=== PATIENT | female | born 1950 | race Caucasian/White ===

== ENCOUNTER → 2021-01-16 08:34 | Outpatient (CLI) | payer MEDICARE, SELFPAY ==
[2021-01-16 19:20] LABS: Add Manual Diff / Slide Review NO; Basophils Absolute Auto 0 /uL (0-100); Basophils Percent Auto 0.6 % (0-2); Eosinophils Absolute Auto 300 /uL (0-450); Eosinophils Percent Auto 3.3 % (2-4); Hematocrit 44.3 % (36-46); Hemoglobin 14.5 g/dL (12.0-16.0); Lymphocytes Absolute Auto 3000 /uL (1100-4500); Mean Corpuscular HGB Conc 32.8 % (30-36); Mean Corpuscular Hemoglobin 29.5 PG (26-34); Mean Corpuscular Volume 90.1 fL (80-100); Monocytes Absolute Auto 900 /uL (0-900); Monocytes Percent Auto 11.4 % (3-14); Neutrophils Absolute Auto 3900 /uL (1500-7000); Neutrophils Percent Auto 47.7 % (50-75); Platelet Count 292 X10^3/uL (150-400); Red Blood Cell Count 4.92 X10^6/uL (4.0-5.2); Red Cell Distribution Width 13.5 % (11.6-14.8); White Blood Cell Count 8.1 X10^3/uL (4.5-11.0)
[2021-01-16 19:54] LABS: Alanine Aminotransferase 40 IU/L (<35); Albumin 4.8 g/dL (3.5-5.0); Albumin Globulin Ratio 1.5 (1.0-2.8); Alkaline Phosphatase 68 U/L (38-126); Aspartate Aminotransferase 42 IU/L (14-36); BUN Creatinine Ratio 22.5 (6-22); Bilirubin Total 0.7 mg/dL (0.2-1.3); Blood Urea Nitrogen 18 mg/dL (7-17); Calcium 10.2 mg/dL (8.4-10.2); Carbon Dioxide 28 mmol/L (22-32); Chloride 103 mmol/L (98-107); Cholesterol 197 mg/dL (140-199); Estimated Glomerular Filt Rate > 60.0 mL/min (>60); Globulin 3.2 g/dL (1.7-4.1); Glucose 107 mg/dL (80-110); HDL Cholesterol 57 mg/dL (40-60); HEMOLYSIS < 15 (0-50); LDL Cholesterol Calculated 113 mg/dL (<100); Potassium 4.4 mmol/L (3.4-5.1); Sodium 139 mmol/L (137-145); Triglycerides 135 mg/dL (35-150)
[2021-01-16 20:33] LABS: Microalbumin Urine Random < 0.6 mg/dL (0-1.6)
== END ==
PROVIDERS: PCP Physician Assistant; Referring Provider Physician Assistant; Visit Provider Physician Assistant
DX: I10 Essential (primary) hypertension (principal)
CPT/HCPCS: 80053; 80061; 82043; 82570; 85025

== ENCOUNTER → 2021-08-21 13:39 | Outpatient (CLI) | payer MEDICARE, SELFPAY ==
[2021-08-21 18:54] LABS: Hemoglobin A1C% w Est Avg Glu 6.2 % (4.0-6.0)
[2021-08-21 18:58] LABS: Alanine Aminotransferase 29 IU/L (<35); Albumin 4.7 g/dL (3.5-5.0); Albumin Globulin Ratio 1.4 (1.0-2.8); Alkaline Phosphatase 56 U/L (38-126); Aspartate Aminotransferase 33 IU/L (14-36); BUN Creatinine Ratio 22.1 (6-22); Bilirubin Total 0.7 mg/dL (0.2-1.3); Blood Urea Nitrogen 19 mg/dL (7-17); Calcium 10.3 mg/dL (8.4-10.2); Carbon Dioxide 27 mmol/L (22-32); Chloride 106 mmol/L (98-107); Estimated Glomerular Filt Rate > 60.0 mL/min (>60); Globulin 3.4 g/dL (1.7-4.1); Glucose 141 mg/dL (80-110); HEMOLYSIS < 15 (0-50); Potassium 4.3 mmol/L (3.4-5.1); Sodium 140 mmol/L (137-145); Total Protein 8.1 g/dL (6.3-8.2)
== END ==
PROVIDERS: PCP Physician Assistant; Visit Provider Physician Assistant
DX: Z13.1 Encounter for screening for diabetes mellitus (principal); I10 Essential (primary) hypertension; R74.8 Abnormal levels of other serum enzymes; R32 Unspecified urinary incontinence
CPT/HCPCS: 80053; 83036

== ENCOUNTER → 2021-09-10 09:47 | Outpatient (CLI) | payer MEDICARE, SELFPAY | PROVIDERS: PCP Physician Assistant; Visit Provider Family Medicine | DX: R30.0 Dysuria (principal) | CPT/HCPCS: 87077; 87086; 87186 ==

== ENCOUNTER → 2021-10-21 13:24 | Outpatient (CLI) | payer MEDICARE, SELFPAY | PROVIDERS: PCP Physician Assistant; Visit Provider Physician Assistant | DX: R32 Unspecified urinary incontinence (principal) | CPT/HCPCS: 87077; 87086; 87185; 87186 ==

== ENCOUNTER → 2021-11-20 08:04 | Outpatient (CLI) | payer MEDICARE, SELFPAY ==
[2021-11-20 19:57] LABS: Hemoglobin A1C% w Est Avg Glu 6.1 % (4.0-6.0)
[2021-11-20 20:10] LABS: BUN Creatinine Ratio 25.7 (6-22); Blood Urea Nitrogen 19 mg/dL (7-17); Calcium 9.6 mg/dL (8.4-10.2); Carbon Dioxide 25 mmol/L (22-32); Chloride 106 mmol/L (98-107); Estimated Glomerular Filt Rate > 60 mL/min (>60); Glucose 113 mg/dL (80-110); HEMOLYSIS < 15 (0-50); Potassium 4.4 mmol/L (3.4-5.1); Sodium 140 mmol/L (137-145)
== END ==
PROVIDERS: PCP Physician Assistant; Visit Provider Physician Assistant
DX: R73.03 Prediabetes (principal); I10 Essential (primary) hypertension
CPT/HCPCS: 80048; 83036

== ENCOUNTER → 2022-03-21 15:13 | Outpatient (CLI) | payer MEDICARE, SELFPAY | PROVIDERS: PCP Physician Assistant Medical; Visit Provider Physician Assistant Medical | DX: R30.0 Dysuria (principal) | CPT/HCPCS: 87086; 87147 ==

== ENCOUNTER → 2022-04-21 13:04 | Outpatient (CLI) | payer MEDICARE, SELFPAY | PROVIDERS: PCP Family Medicine; Visit Provider Family Medicine | DX: R30.0 Dysuria (principal); N39.0 Urinary tract infection, site not specified | CPT/HCPCS: 87086 ==

== ENCOUNTER → 2022-05-15 08:16 | Outpatient (CLI) | payer MEDICARE, SELFPAY ==
[2022-05-15 20:19] LABS: Hemoglobin A1C% w Est Avg Glu 6.2 % (4.0-6.0)
== END ==
PROVIDERS: PCP Family Medicine; Visit Provider Physician Assistant
DX: R73.03 Prediabetes (principal)
CPT/HCPCS: 83036

== ENCOUNTER → 2022-07-24 09:55 | Outpatient (CLI) | payer MEDICARE, SELFPAY | PROVIDERS: PCP Family Medicine; Visit Provider Physician Assistant Medical | DX: N30.01 Acute cystitis with hematuria (principal) | CPT/HCPCS: 87077; 87086; 87186 ==

== ENCOUNTER → 2022-11-05 09:01 | Outpatient (CLI) | payer MEDICARE, SELFPAY ==
[2022-11-05 20:11] LABS: Alanine Aminotransferase 22 IU/L (<35); Albumin 4.6 g/dL (3.5-5.0); Albumin Globulin Ratio 1.3 (1.0-2.8); Alkaline Phosphatase 74 U/L (38-126); Aspartate Aminotransferase 28 IU/L (14-36); BUN Creatinine Ratio 23.3 (6-22); Bilirubin Total 0.9 mg/dL (0.2-1.3); Blood Urea Nitrogen 17 mg/dL (7-17); Carbon Dioxide 27 mmol/L (22-32); Chloride 102 mmol/L (98-107); Cholesterol 206 mg/dL (140-199); Estimated Glomerular Filt Rate > 60 mL/min (>60); Globulin 3.6 g/dL (1.7-4.1); Glucose 95 mg/dL (80-110); HDL Cholesterol 57 mg/dL (40-60); HEMOLYSIS 24 (0-50); LDL Cholesterol Calculated 135 mg/dL (<100); Potassium 4.3 mmol/L (3.4-5.1); Sodium 139 mmol/L (137-145); Total Protein 8.2 g/dL (6.3-8.2); Triglycerides 68 mg/dL (35-150)
[2022-11-05 20:19] LABS: Add Manual Diff / Slide Review NO; Basophils Absolute Auto 100 /uL (0-100); Basophils Percent Auto 1.3 % (0-2); Eosinophils Absolute Auto 100 /uL (0-450); Eosinophils Percent Auto 1.4 % (2-4); Hematocrit 41.7 % (36-46); Hemoglobin 14.2 g/dL (12.0-16.0); Lymphocytes Absolute Auto 2800 /uL (1100-4500); Lymphocytes Percent Auto 34.8 % (25-40); Mean Corpuscular Hemoglobin 29.8 PG (26-34); Mean Corpuscular Volume 87.5 fL (80-100); Monocytes Absolute Auto 900 /uL (0-900); Monocytes Percent Auto 10.6 % (3-14); Neutrophils Absolute Auto 4200 /uL (1500-7000); Neutrophils Percent Auto 51.9 % (50-75); Platelet Count 315 X10^3/uL (150-400); Red Blood Cell Count 4.76 X10^6/uL (4.0-5.2); White Blood Cell Count 8.2 X10^3/uL (4.5-11.0)
== END ==
PROVIDERS: PCP Family Medicine; Visit Provider Physician Assistant
DX: I10 Essential (primary) hypertension (principal); R73.03 Prediabetes
CPT/HCPCS: 80053; 80061; 83036; 85025

== ENCOUNTER 2022-11-17 11:06 | Day surgery (SDC) | payer MEDICARE, SELFPAY ==
[2022-11-12 08:44] VITALS: BMI 33.9
[2022-11-17] VITALS (15 sets, daily range): BP systolic 92–177; BP diastolic 50–87; PULSE 55–70; RESP 12–18; TEMP 36.2–36.6; O2SAT 59–98; BMI 33.5
--- NOTE | 2022-11-17 | PATH_ITS ---
[facility] Accession Number: [id number] No. of containers..01 Tissue . 01 Material submitted: . uterus - UTERUS . 01 Diagnosis: Uterus, Procedure Not Specified (Weight 111 grams): Cervix with parakeratosis and hyperkeratosis, consistent with clinical impression of prolapse. Endocervix with prominent Nabothian gland cysts. Inactive, basalis endometrium with regions of cystic atrophy. Myometrium with multiple intramural leiomyomas (up to 8 mm in greatest dimension). Uterine serosa with no significant histomorphologic abnormality. Please see comment. MRV 11/20/2022 1810 Local . 01 Comment: The gross description mentions hemorrhagic material within the endometrial cavity with an associated area of endometrial disruption. Histologic findings demonstrate recent hemorrhage; negative for significant atypia or neoplasia. . 01 Electronically signed: . Valery Sterling MD, Pathologist NPI- [id number] . 01 Gross description: . The specimen is received in formalin labeled with the patient's name, , and uterus, and consists of an intact uterus (111 grams, 8.6 cm SI, 6.4 cm ML, and 4.0 cm AP) with attached cervix (3.4 x 3.0 cm) and no additional adnexa identified. The anterior paracervical margin is inked blue while the posterior paracervical margin is inked black. The ectocervix is pink-pereyra and wrinkled with a slit-like cervical os measuring 0.6 cm in diameter. The serosa is pereyra and smooth with no evidence of hemorrhage or adhesion identified. The endocervical canal has pereyra herringbone mucosa and measures 2.5 cm in length. The endometrial cavity is significant for a disrupted area at the surgical margin measuring 1.7 cm in length. The endometrial cavity is filled with semi-solid hemorrhagic material and measures 2.7 cm from cornu to cornu, and 4.7 cm in length. The endometrium is red-pereyra and average 0.1 cm thick. The myometrium is pink-pereyra and trabecular measuring up to 1.7 cm in maximum thickness, and is significant for multiple well-circumscribed white whorled nodules measuring up to 0.8 cm in greatest dimension with no hemorrhage or necrosis identified. Crystal Report Developer sections are submitted as follows: A1: Anterior cervix. A2: Posterior cervix. A3: Anterior full thickness section. A4: Posterior full thickness section with nodule. A5: Additional nodules. A6: Disrupted hemorrhagic area. A7: Crystal Report Developer serosa with nodules. ([id number]) /MRV 11/18/2022 1901 Local . 01 Pathologist provided ICD-10: N81.3 . 01 CPT . 889478 Specimen Comment: A courtesy copy of this report has been sent to [phone] Performed at: 01 [facility] [address] [place] [address], [place], [place] [id number] MD Jay Wiggins MD Phone: [phone]
--- NOTE | 2022-11-17 12:47 | P.OP.PRE_ITS ---
Pre-operative Note COVID-19 COVID-19 status: Result pending Result date/Date tested (Pos, Neg/Pending): 11/17/22 Criteria for continued procedure: Deterioration of the patient's condition or overall health Interval Note History & Physical reviewed/Exam performed by Physician: Yes Changes to H&P: Yes H&P completed within 30 days and has changed as indicated here:: Planned has mayuri nged to vaginal hysterectomy instead of laparoscopic total hysterectomy
[2022-11-17] MEDS: LACTATED RINGERS 1,000 ML 42 ML IV (13:02)
[2022-11-17] MEDS: ACETAMINOPHEN 325 MG TABLET 975 MG PO (13:05)
[2022-11-17 13:09] LABS: COVID19 -Nasal RAPID Negative (Negative)
[2022-11-17] MEDS: CEFAZOLIN 2 GM/100 ML PREMIX 100 ML IV (13:35)
--- NOTE | 2022-11-17 13:54 | SUR.OPER ---
Lithotomy on padded OR bed, head on pillow, arms secured on padded arm boards at <90 degrees abduction. Legs secured in padded yellow fins stirrups.
[2022-11-17] MEDS: BUPIVACAINE 0.5% (PF) 30 ML, EPINEPHrine 0.15 MG INJ (14:14)
--- NOTE | 2022-11-17 16:15 | PM.GYNOP.1 ---
Operative Date/Time/Diagnoses Date of procedure: 11/17/22 Time of procedure: 14:00 Pre-op diagnosis: Uterine procidentia (Stage 4 uterovaginal prolapse) Post-op diagnosis: same Procedure & Clinicians Procedure: Procedures Operation Date: 11/17/22 12:45 Actual Procedure Side Surgeon p Total Vaginal Hysterectomy, culdoplasty Suzanne Gallo MD s sacrospinous ligament fixation, anterior/posterior repair, Suzanne Gallo MD Indications: History of present illness: Patient is a 72-year-old para 2 who has been having increasing prolapse for the past 3 years.? She feels that at times she is unable to empty her bladder.? She denies any stress incontinence.? She sometimes has inability to control her urine if she starts to urinate her bladder just empties.? She denies any significant constipation or diarrhea problems.? She denies any vaginal bleeding.? She is interested in being able to retain the ability to have intercourse so declines obliterative surgery. On pelvic exam there is total uterine procidentia.? The uterus is not enlarged.? No palpable adnexal masses. Consent form for surgery was reviewed with the patient.? Risk of reaction to medication or anesthesia.? Possible damage to internal structures such as bowel, bladder, ureters that could require opening the abdomen to repair or additional surgery.? Possible increase in incontinence after surgery.? Possible recurrence of prolapse after surgery.? Possible discomfort with intercourse from incisions.? Minimal risk of bleeding enough to require blood transfusion but she is agreeable to blood transfusion if necessary.? 10% risk of needing antibiotics for infection after surgery.? Consent form signed and questions answered.? Copy of consent form given to the patient.? Pre and postop instructions reviewed with the patient. Surgeon: Suzanne Gallo Maintenance Services Dispatcher: Marino Mattson Anesthesia Type: General Operative Notes Findings: Examination under anesthesia confirms complete uterovaginal prolapse. The uterus itself is small and both tubes and ovaries are also atrophic and normal in appearance. Closure Type: primary Specimen(s): portion of vagina and uterus Applied: catheter and other (Vaginal packing) Estimated blood loss (mL): 200 Blood products transfused: none Procedure in detail: With the patient under satisfactory general anesthesia in the modified dorsal lithotomy position, the vagina, perineum, and lower abdomen were prepped and draped for total vaginal hysterectomy. A pre-surgical safety time-out was then taken in accordance with [facility] Main OR protocols. The portio of the cervix injected with 0.5% Marcaine with epinephrine and a circumferential incision around the portio was made monopolar cautery. The bladder was advanced anteriorly with a Ray-Alexia and posterior colpotomy was performed. The LigaSure handheld bipolar device was then used to take the initial pedicles on both sides and anterior colpotomy was completed. Sequential pedicles were then taken up both sides of the uterus with each individually secured with the NovaSure device. Once the cornu had been reached, pedicles were ligated doubly with 0 Vicryl and the tubes and ovaries carefully inspected once the uterus was removed. Both tubes and ovaries appeared to be completely normal to visualization and palpation and therefore were left in-situ. The posterior cul-de-sac was then dissected so as to free up the redundant peritoneum and the redundant peritoneum was then excised. The ischial spines were then identified by palpation transvaginally and a single 0 Prolene was placed through the superior half of the sacrospinous ligament on each side. Sweet needles were then used to secure the Prolene sutures to the lateral aspect of the vaginal muscularis the cul-de-sac was explored and 0 Vicryl suture was used to perform a Valentin culdoplasty with the sutures brought out through the posterior aspect vaginal cuff. The Prolene sutures were then tied with excellent elevation both vaginal cuff angles. Anterior colporrhaphy was then performed full length of the anterior vaginal wall with 2 layers of plication sutures using 0 Vicryl. Bethany plication was also performed and the redundant portion of the anterior vaginal mucosa was excised. The anterior vaginal wall mucosa was then closed with 0 Vicryl in a running interlocking stitch. The vaginal cuff was then closed with 0 Vicryl [id number] sutures and the Valentin culdoplasty sutures were then tied further elevating vaginal cuff. Attention was then turned to performance of the posterior repair and perineoplasty. The posterior vaginal wall mucosa and the perineum were infiltrated with 0.25% Marcaine with epinephrine. A v-shaped incision over the perineal body was made and the redundant portion of the skin at the introitus was excised the posterior vaginal mucosa was then undermined all the way to the vaginal cuff after infiltration with 0.25% Marcaine with epinephrine. Two layers of 0 Vicryl were used to plicate levator ani and the pararectal fascia. The redundant portion of posterior vaginal mucosa was excised and the posterior vaginal wall was then closed with 0 Vicryl in a running stitch. The perineum was then brought together with 0 Vicryl deep stitches and superficial stitches on the skin of the perineal body. The procedure was then terminated and patient awakened from anesthesia. She was then transferred to the PACU for a period of observation and recovery after having tolerated the procedure well. Complications: none Post-operative Condition: stable Disposition: PACU Plan for aftercare: Routine postoperative care with removal of vaginal pack a.m. 11/19/2019
--- NOTE | 2022-11-17 17:13 | SUR.PHASEI ---
Report to Erika Khan. All belongings with patient to room 216.
[2022-11-17] MEDS: IBUPROFEN 600 MG TABLET PO ×2 (18:03→23:18)
[2022-11-17] MEDS: LACTATED RINGERS 1,000 ML 100 ML IV (18:07)
--- NOTE | 2022-11-17 18:07 | PC.NURSE ---
Pt arrived from PACU at 1720 A&OX4, on RA. She is oriented to room.She denies n/v and is able to tolerate sips. She denies feeling hungry for dinner. Berg in place, pad in place without any drainage. She reports moderate pain in lower abdomen, medicated with scheduled Ibuprofen. LR in R wrist IVF running at 100 ml/hr. Frequent post op VSS, Call light in place, bed alarm on.
[2022-11-17] MEDS: ACETAMINOPHEN 325 MG TABLET 650 MG PO ×2 (19:01→23:18)
[2022-11-17] MEDS: DOCUSATE 100 MG CAPSULE 200 MG PO (21:00)
[2022-11-17] MEDS: OXYCODONE IR 5 MG TABLET PO (21:05)
[2022-11-18 00:53] VITALS: BP 130/63; PULSE 72; RESP 18; TEMP 36.2; O2SAT 98
[2022-11-18] MEDS: OXYCODONE IR 5 MG TABLET PO ×2 (02:28→08:25)
[2022-11-18 04:28] VITALS: BP 146/65; PULSE 65; RESP 18; TEMP 36.8; O2SAT 94
[2022-11-18 06:08] LABS: Add Manual Diff / Slide Review NO; Basophils Absolute Auto 0 /uL (0-100); Basophils Percent Auto 0.2 % (0-2); Eosinophils Absolute Auto 0 /uL (0-450); Hematocrit 36.3 % (36-46); Hemoglobin 12.4 g/dL (12.0-16.0); Lymphocytes Absolute Auto 1400 /uL (1100-4500); Lymphocytes Percent Auto 9.4 % (25-40); Mean Corpuscular HGB Conc 34.1 % (30-36); Mean Corpuscular Hemoglobin 29.3 PG (26-34); Mean Corpuscular Volume 86.2 fL (80-100); Monocytes Absolute Auto 1200 /uL (0-900); Monocytes Percent Auto 7.7 % (3-14); Neutrophils Absolute Auto 12800 /uL (1500-7000); Neutrophils Percent Auto 82.7 % (50-75); Platelet Count 263 X10^3/uL (150-400); Red Blood Cell Count 4.21 X10^6/uL (4.0-5.2); White Blood Cell Count 15.4 X10^3/uL (4.5-11.0)
[2022-11-18 07:00] VITALS: O2SAT 94
--- NOTE | 2022-11-18 07:55 | PM.DS.1 ---
History of Present Illness History of Present Illness Date Patient Seen: 11/18/22 Time Patient Seen: 07:55 Chief complaint: OPB Narrative: Postoperative surgery for total uterine prolapse Discharge Providers Provider Discharge Date: 11/18/22 Primary care physician: Rafaela Skaggs PA-C Consults: 11/17/22 17:37 Consult to Pastoral Services Routine Comment: just to check in while pt is post op in hospital Discharge provider: Suzanne Gallo MD Summary Hospital Course Discharge Diagnosis: Total uterine prolapse Hospital Course: Patient underwent total vaginal hysterectomy, Valentin uterosacral plication, bilateral sacrospinous ligament fixation, anterior and posterior repair with perineoplasty on 11/17/2022. Patient states her pain is under control. No nausea or vomiting. Status at Discharge Cognitive/behavioral status at discharge: oriented Functional status at discharge: independent ambulation Overall status at discharge: patient is progressing back to baseline Time Spent with Patient Time spent: Less than 30 minutes Exam Vital Signs (past 8 hours): - 11/18/22 00:53 11/18/22 04:28 Temperature 97.1 F L 98.2 F Pulse Rate 72 65 Respiratory Rate 18 18 Blood Pressure 130/63 146/65 H Pulse Oximetry 98 94 Oxygen Flow Rate 0 0 Oxygen Delivery Method Room Air Oxygen Flow Rate 0 Narrative Exam Narrative: Abdomen is soft, nontender. Vaginal packing when removed was soaked with blood. No active bleeding. Extremities without edema and nontender. Patient was unable to urinate after catheter removal. She will be taught straight cath every 4 hours until minimal postvoid residual. Objective Labs 11/18/22 05:45 Labs: Laboratory Results - last 24 hr 11/17/22 11/18/22 12:52 05:45 WBC 15.4 H RBC 4.21 Hgb 12.4 Hct 36.3 MCV 86.2 MCH 29.3 MCHC 34.1 RDW 14.0 Plt Count 263 Neut % (Auto) 82.7 H Lymph % (Auto) 9.[address] [place] % (Auto) 7.7 Eos % (Auto) 0.0 L Baso % (Auto) 0.2 Neut # (Auto) 69490 H Lymph # (Auto) 1400 [place] # (Auto) 1200 H Eos # (Auto) 0 Baso # (Auto) 0 SARS-CoV-2 (PCR) Negative [facility] Medical History (Updated 11/12/22 @ 16:43 by Suzanne Gallo MD) Bilateral cataracts (2019) Colon cancer screening HTN (hypertension) Prediabetes Procidentia of uterus Tinnitus Surgical History (Updated 11/17/22 @ 16:38 by Suzanne Gallo MD) Hx of tonsillectomy (1957) Social History household members: spouse Smoking Status: Never smoker alcohol intake: current Discharge Assessment & Plan Assessment and Plan Assessment: Total uterine prolapse status post total vaginal hysterectomy, Valentin uterosacral plication, bilateral sacrospinous ligament fixation, anterior and posterior repair with perineoplasty doing well. Plan of Treatment: Patient was unable to urinate and will be taught to straight cath herself. She should catheterize herself every 4 hours until minimal postvoid residual. Routine precautions for bleeding, fever, pain reviewed with the patient. Follow-up in 2 weeks. Discharge Plan Discharge Plan Patient Disposition: Home Discharge orders & Medications Discharge Orders: Discharge (Order); Ordered 11/18/22 Ordered By: Suzanne Gallo Prescriptions: Continued oxycodone 5 mg tablet 5 mg PO Q4H PRN (Reason: pain) Qty: 20 0RF Patient Comments: Post op medication. Denied taking medication. lisinopril 10 mg tablet See Rx Instructions .ROUTE .COMPLEX Qty: 90 3RF Dose Instruction: TAKE ONE TABLET BY MOUTH EVERY DAY Rx Instructions: TAKE ONE TABLET BY MOUTH EVERY DAY Follow up/Referrals: Rafaela Skaggs PA-C [Primary Care Provider] - Suzanne Gallo MD [Physician] - 12/02/22 11:30 am (Appt:12/02 @ 11:[address] Mattson please arrive 15 min prior to scheduled appointment time ) Diet/Activity/Treatments Diet: Regular Activity: Nothing in vagina for 6 weeks, no lifting over 10 lb for 6 weeks Skin/Wound/Dressing Care Report to your healthcare provider any signs of infection, such as:: chills, fever and increased pain Visit Report/Discharge Packet Instructions: DI for Hysterectomy Stand Alone Forms: Patient Portal/API, Surgery Discharge Discharge Data Primary Care Provider: Rafaela Skaggs Attending Provider: Marino Mattson VTE Deep Vein Thrombosis/Pulmonary Embolism Present on Admission: No
[2022-11-18] MEDS: DOCUSATE 100 MG CAPSULE 200 MG PO (08:26)
[2022-11-18 08:30] VITALS: BP 114/59; PULSE 77
[2022-11-18 09:20] VITALS: BP 114/47; PULSE 63; RESP 15; TEMP 37.3; O2SAT 94
[2022-11-18] MEDS: ACETAMINOPHEN 325 MG TABLET 650 MG PO (12:21)
[2022-11-18] MEDS: IBUPROFEN 600 MG TABLET PO (12:22)
--- NOTE | 2022-11-18 12:57 | CM.DANOTE ---
Patient is a 72 yo female who was admitted on 11/17/22 for Hysterectomy/Prolapse. Pt has MCR for insurance and her PCP is Rafaela Skaggs. EMR was reviewed. Per OBGYN, pt tolerated her surgical intervention well and pain seems controlled and no n/v and tolerating diet. Berg was discontinued and awaiting pt to void independently and confirm no bleeding and then pt can d/c home today. Per RN, currently no concerns at this time and anticipates d/c around lunchtime. Pt active and independent at baseline and lives on [facility] with her spouse. No DME for ambulation and pt drives. Pt preference is to d/c home on early afternoon . Plan: SW to follow for plan of d/c home back to [place] via spouse POV and outpt f/u and any further identified discharge planning needs. MONY Flores Discharge Planning/Care Management CM Discharge Assessment Start: 11/18/22 12:55 Freq: Status: Active Protocol: Document 11/18/22 12:56 BF (Rec: 11/18/22 12:57 BF [id number]) Discharge Planning Assessment Assigned French Pastry Cook MONY Patel DPOA/Assigned Designee Name spouse Patrick Contact Information [phone] Advance Directives? No Advance Directives on File No History Provided By Patient,Medical Record Has Patient been admitted in last 30 No days? Prior Living Arrangements House Household Members spouse Type of transporation used prior to Drives own vehicle admit Independent with ADL's Yes Is patient alert and oriented? Yes Caregiver for Another No Barriers to Discharge No Discharge Plan Home Transportation Arrangement spouse to transport at d/c Referrals Initiated None needed Whiteboard Updated in Patient Room with Yes name and ext. # of French Pastry Cook Review Status In Process Please Provide Date Initial DC 11/18/22 Assessment Was Performed Next Review Type Continued Stay Review Pre-Anesthesia Assessment Start: 11/12/22 08:44 Freq: Status: Active Protocol: Document 11/12/22 08:44 CAB (Rec: 11/12/22 08:50 CAB [id number]) Pre-Anesthesia Assessment Preferred Name Dennis Patient Information Reviewed Via Chart Review Primary Care Provider Rafaela Skaggs Seen Specialist in Last 12 Months Yes Specialist Seen Outboard Motorboat Rigger Primary Language Cambodian Body And Fender Worker Required No Height 180.34 cm Weight 110.223 kg Body Mass Index (BMI) 33.9 Barriers to Learning None Hx Anesthesia Reactions No Anesthesia Review Requested No Hydro Plant Technician No alcohol intake current alcohol intake frequency holidays/special occasions only Smoking Status Never smoker Substance Use Type does not use Pain Present Pain Reported Musculoskeletal Symptoms Arthralgias,Back Pain,Joint Pain,Myalgias Patient is completely paralyzed or No completely immobile Mental Status Oriented to own ability Hx Sleep Apnea No Currently Taking a Beta Jaspreet No Anti-Coagulant Therapy No Cardiac Testing No Hx Pacemaker/ICD No Pacemaker Rep Required? No Cardiac Clearance Received Not Applicable Urinary Catheter Present No Hx Urinary Self Catheterization No Diabetes No: Pre-diabetes Patient No Lactating No Presence of External or Internal Medical No Devices Marital Status Lives With spouse Patient Discharge Plan Description Return Home Comment Lives on [facility]
[2022-11-18 13:28] VITALS: BP 129/64; PULSE 55; RESP 16; TEMP 36.4; O2SAT 97
--- NOTE | 2022-11-18 17:24 | PC.NURSE ---
Pt is A&OX4. VSS, afebrile on RA. DBP slightly low in 50's and pt initially light headed upon first time out of bed, lisinopril held. Patient had perez catheter removed by MD at approximately 0745, as well as vaginal packing. Minimal spotting noted. Patient is tolerating breakfast. She is able to ambulate around the unit independently with this a.m. MD returned approximately noon to assess patient and patient had not yet voided. Per MD patient could go home with option to straight cath and continue to keep post op appointment in 2 weeks. Patient is educated on straight cathing, and is provided with supplies. 550 cc obtained from straight cath this afternoon. She verbalizes understanding of activity limitations, medication, s/sx of infection /complications as well as straigh cathing and follow up appointment with MD Mattson. She is escorted this afternoon via w/ch to private vehicle with her for discharge home at approximately 1600 for discharge back to [facility].
== END 2022-11-18 16:00 | disposition home or self-care (01) ==
LOC: OR 11:09 → AC 11:09
PROVIDERS: Specialist; PCP Physician Assistant; Referring Provider Obstetrics & Gynecology; Visit Provider Obstetrics & Gynecology
PROC: (CPT 58260; principal; 2022-11-17 12:45)
DX: N81.3 Complete uterovaginal prolapse (principal); N88.8 Other specified noninflammatory disorders of cervix uteri; D25.1 Intramural leiomyoma of uterus; Z20.822 Contact with and (suspected) exposure to COVID-19
CPT/HCPCS: 58260; 57260; 57282; 85025; 87635; C9803; J0171; J0690; J1100; J2405; J2704; J3010

== ENCOUNTER → 2023-03-16 09:02 | Outpatient (CLI) | payer MEDICARE, SELFPAY ==
[2022-11-17 17:31] VITALS: BMI 33.5
[2023-03-16 20:15] LABS: Cholesterol 236 mg/dL (140-199); HDL Cholesterol 51 mg/dL (40-60); LDL Cholesterol Calculated 159 mg/dL (<100); Triglycerides 132 mg/dL (35-150)
== END ==
PROVIDERS: PCP Family Medicine; Visit Provider Physician Assistant
DX: E78.5 Hyperlipidemia, unspecified (principal)
CPT/HCPCS: 80061

== ENCOUNTER → 2023-08-10 09:40 | Outpatient (CLI) | payer MEDICARE, SELFPAY ==
[2023-03-19 09:49] VITALS: BMI 33.5
== END ==
PROVIDERS: PCP Family Medicine; Visit Provider Family Medicine
DX: R39.89 Other symptoms and signs involving the genitourinary system (principal)
CPT/HCPCS: 87077; 87086; 87186

== ENCOUNTER → 2023-11-11 08:56 | Outpatient (CLI) | payer MEDICARE, SELFPAY ==
[2023-03-19 09:49] VITALS: BMI 33.5
[2023-11-11 21:05] LABS: Add Manual Diff / Slide Review NO; Basophils Absolute Auto 100 /uL (0-100); Basophils Percent Auto 0.7 % (0-2); Eosinophils Absolute Auto 200 /uL (0-450); Eosinophils Percent Auto 2.4 % (2-4); Hematocrit 43.1 % (36-46); Hemoglobin 14.5 g/dL (12.0-16.0); Lymphocytes Absolute Auto 2900 /uL (1100-4500); Lymphocytes Percent Auto 34.6 % (25-40); Mean Corpuscular HGB Conc 33.6 % (30-36); Mean Corpuscular Hemoglobin 29.9 PG (26-34); Mean Corpuscular Volume 88.9 fL (80-100); Monocytes Absolute Auto 900 /uL (0-900); Monocytes Percent Auto 10.9 % (3-14); Neutrophils Absolute Auto 4300 /uL (1500-7000); Neutrophils Percent Auto 51.4 % (50-75); Platelet Count 291 X10^3/uL (150-400); Red Blood Cell Count 4.85 X10^6/uL (4.0-5.2); Red Cell Distribution Width 13.6 % (11.6-14.8); White Blood Cell Count 8.4 X10^3/uL (4.5-11.0)
[2023-11-11 21:12] LABS: Alanine Aminotransferase 24 IU/L (<35); Albumin 4.9 g/dL (3.5-5.0); Albumin Globulin Ratio 1.4 (1.0-2.8); Alkaline Phosphatase 69 U/L (38-126); Aspartate Aminotransferase 31 IU/L (14-36); BUN Creatinine Ratio 21.6 (6-22); Blood Urea Nitrogen 16 mg/dL (7-17); Calcium 10.2 mg/dL (8.4-10.2); Carbon Dioxide 28 mmol/L (22-32); Chloride 105 mmol/L (98-107); Cholesterol 205 mg/dL (140-199); Estimated Glomerular Filt Rate > 60 mL/min (>60); Globulin 3.4 g/dL (1.7-4.1); Glucose 94 mg/dL (80-110); HDL Cholesterol 55 mg/dL (40-60); HEMOLYSIS < 15 (0-50); LDL Cholesterol Calculated 133 mg/dL (<100); Potassium 4.2 mmol/L (3.4-5.1); Sodium 140 mmol/L (137-145); Total Protein 8.3 g/dL (6.3-8.2); Triglycerides 86 mg/dL (35-150)
[2023-11-11 21:25] LABS: Hemoglobin A1C% w Est Avg Glu 6.2 % (4.0-6.0)
== END ==
PROVIDERS: PCP Family Medicine; Visit Provider Family Medicine
DX: I10 Essential (primary) hypertension (principal); R73.03 Prediabetes; R74.8 Abnormal levels of other serum enzymes; E78.5 Hyperlipidemia, unspecified
CPT/HCPCS: 80053; 80061; 83036; 85025

== ENCOUNTER → 2024-05-23 10:52 | Outpatient (CLI) | payer MEDICARE, SELFPAY ==
[2023-03-19 09:49] VITALS: BMI 33.5
[2024-05-23 19:33] LABS: BUN Creatinine Ratio 22.4 (6-22); Blood Urea Nitrogen 19 mg/dL (7-17); Carbon Dioxide 31 mmol/L (22-32); Chloride 102 mmol/L (98-107); Estimated Glomerular Filt Rate > 60 mL/min (>60); Glucose 105 mg/dL (80-110); HEMOLYSIS 17 (0-50); Magnesium 2.3 mg/dL (1.6-2.3); Potassium 4.2 mmol/L (3.4-5.1); Sodium 138 mmol/L (137-145)
[2024-05-23 19:46] LABS: LDL Cholesterol Direct 131 mg/dL (<100)
== END ==
PROVIDERS: PCP Family Medicine; Visit Provider Family Medicine
DX: I10 Essential (primary) hypertension (principal); R73.03 Prediabetes; E66.01 Morbid (severe) obesity due to excess calories; E78.5 Hyperlipidemia, unspecified; R25.2 Cramp and spasm
CPT/HCPCS: 80048; 83036; 83721; 83735

== ENCOUNTER → 2024-09-06 11:17 | Outpatient (CLI) | payer MEDICARE, SELFPAY ==
[2023-03-19 09:49] VITALS: BMI 33.5
[2024-09-06 19:40] LABS: BUN Creatinine Ratio 22.8 (6-22); Blood Urea Nitrogen 21 mg/dL (7-17); Carbon Dioxide 27 mmol/L (22-32); Chloride 101 mmol/L (98-107); Estimated Glomerular Filt Rate > 60 mL/min (>60); Glucose 94 mg/dL (80-110); HEMOLYSIS < 15 (0-50); Potassium 4.2 mmol/L (3.4-5.1); Sodium 140 mmol/L (137-145)
[2024-09-06 20:07] LABS: Thyroid Stimulating Hormone 3.61 uIU/mL (0.47-4.68)
== END ==
PROVIDERS: PCP Family Medicine; Visit Provider Family Medicine
DX: I10 Essential (primary) hypertension (principal); E78.5 Hyperlipidemia, unspecified; Z13.29 Encounter for screening for other suspected endocrine disorder
CPT/HCPCS: 80048; 84443

== ENCOUNTER → 2025-04-10 08:53 | Outpatient (CLI) | payer MEDICARE, SELFPAY ==
[2023-03-19 09:49] VITALS: BMI 33.5
[2025-04-10 18:55] LABS: Add Manual Diff / Slide Review NO; Hematocrit 40.4 % (36-46); Hemoglobin 13.8 g/dL (12.0-16.0); Lymphocytes Absolute Auto 3200 /uL (1100-4500); Mean Corpuscular HGB Conc 34.3 % (30-36); Mean Corpuscular Hemoglobin 30.5 PG (26-34); Mean Corpuscular Volume 88.8 fL (80-100); Platelet Count 278 X10^3/uL (150-400)
[2025-04-10 19:33] LABS: Alanine Aminotransferase 24 IU/L (<35); Albumin 4.8 g/dL (3.5-5.0); Albumin Globulin Ratio 1.4 (1.0-2.8); Alkaline Phosphatase 71 U/L (38-126); Blood Urea Nitrogen 32 mg/dL (7-17); Calcium 10.2 mg/dL (8.4-10.2); Carbon Dioxide 28 mmol/L (22-32); Chloride 103 mmol/L (98-107); Cholesterol 209 mg/dL (140-199); Estimated Glomerular Filt Rate 55 mL/min (>60); Globulin 3.5 g/dL (1.7-4.1); Glucose 104 mg/dL (70-99); HDL Cholesterol 55 mg/dL (40-60); HEMOLYSIS < 15 (0-50); Potassium 4.3 mmol/L (3.4-5.1); Sodium 138 mmol/L (137-145); Total Protein 8.3 g/dL (6.3-8.2); Triglycerides 103 mg/dL (35-150)
[2025-04-10 19:38] LABS: Hemoglobin A1C% w Est Avg Glu 6.1 % (4.0-6.0)
== END ==
PROVIDERS: PCP Family Medicine; Visit Provider Family Medicine
DX: R73.03 Prediabetes (principal); R74.8 Abnormal levels of other serum enzymes; I10 Essential (primary) hypertension; E78.5 Hyperlipidemia, unspecified
CPT/HCPCS: 80053; 80061; 83036; 85025